=== PATIENT | female | born 1985 | race Caucasian/White ===

== ENCOUNTER 2016-10-02 07:32 | Emergency (ER) | payer OTHER ==
[2016-10-02 08:29] LABS: URINE BILIRUBIN NEGATIVE (NEGATIVE); URINE BLOOD 2+ (NEGATIVE); URINE GLUCOSE (UA) NORMAL (NORMAL); URINE KETONE TRACE (NEGATIVE); URINE LEUKOCYTE ESTERASE TRACE (NEGATIVE); URINE NITRATE NEGATIVE (NEGATIVE); URINE PROTEIN TRACE (NEGATIVE); UROBILINOGEN NORMAL mg/dL (<1.0)
[2016-10-02 08:40] LABS: BASO % 0.1 % (0.1-1.2); EOS % 0.2 % (0.7-5.8); GRAN # 14.9 10_X3_uL (1.6-6.1); GRAN % 92.8 % (34.0-71.1); HEMATOCRIT 42.1 % (34-45); LYMPH # 0.5 10_X3_uL (1.2-3.7); MEAN CORPUSCULAR HEMOGLOBIN 31.5 pg (27.0-33.0); MEAN CORPUSCULAR HGB CONC 33.3 g/dL (32.0-36.0); MEAN CORPUSCULAR VOLUME 94.6 fL (79-95); MEAN PLATELET VOLUME 10.7 fl (7.5-11.5); MONO # 0.6 10_X3_uL (0.2-0.9); MONO % 3.9 % (4.7-12.5); PLATELET COUNT 309 x10_3/uL (182-369); RED BLOOD COUNT 4.45 x10_6/uL (3.9-5.2); RED CELL DISTRIBUTION WIDTH 12.8 % (11.7-14.4); WHITE BLOOD COUNT 16.1 x10_3/uL (4.0-10.0)
[2016-10-02 08:47] LABS: BLOOD UREA NITROGEN 15 mg/dL (7-18); CALCIUM 8.7 mg/dL (8.7-10.7); CARBON DIOXIDE 23 mmol/L (21-32); CREATININE 0.7 mg/dL (0.6-1.3); GLUCOSE,RANDOM 122 mg/dL (70-99); SODIUM 137 mmol/L (136-145)
[2016-10-02 09:34] LABS: URINE BACTERIA FEW (NONE SEEN); URINE SQUAMOUS EPITHELIAL CELL 0-10 /[HPF] (NONE SEEN); URINE WBC 0-5 /[HPF] (0-5)
== END 2016-10-02 10:13 | disposition home or self-care (01) ==
LOC: ER 07:32
PROVIDERS: Family Medicine
DX: A04.8 Other specified bacterial intestinal infections (principal); R10.9 Unspecified abdominal pain; R19.7 Diarrhea, unspecified; Z90.49 Acquired absence of other specified parts of digestive tract; F17.210 Nicotine dependence, cigarettes, uncomplicated
CPT/HCPCS: 36415; 80048; 81001; 85025; 87400; 96361; 96374; 99070; 99283-25

== ENCOUNTER 2016-10-09 20:02 | Emergency (ER) | payer OTHER | END 2016-10-09 20:42 | disposition home or self-care (01) | LOC: ER 20:02 | DX: S63.502A Unspecified sprain of left wrist, initial encounter (principal); X50.0XXA Overexertion from strenuous movement or load, initial encounter | CPT/HCPCS: 73110; 99070; 99283 ==